=== PATIENT | female | born 1975 | race Hispanic/Latino ===

== ENCOUNTER 2024-02-02 09:46 | Emergency (ER) | payer SELFPAY ==
[~2024-02-02] VITALS: Ht 154.9 cm; Wt 113.4 kg
[2024-02-02 10:38] LABS: BASOPHILS # (AUTO) 0.05 K/uL (0.00-0.20); BASOPHILS % (AUTO) 0.6 % (0.0-5.0); EOSINOPHILS # (AUTO) 0.14 K/uL (0.00-0.70); EOSINOPHILS % (AUTO) 1.8 % (0.0-8.0); HEMATOCRIT 43.7 % (36-48); IMMATURE GRANULOCYTE ABSOLUTE 0.02 K/uL (0-1); LYMPHOCYTES % (AUTO) 39.4 % (21.0-51.0); MEAN CORPUSCULAR HGB CONC 33.4 g/dL (32.0-36.0); MEAN CORPUSCULAR VOLUME 83.9 fL (79-99); MONOCYTES # (AUTO) 0.5 K/uL (0.1-1.0); MONOCYTES % (AUTO) 6.1 % (3.0-13.0); NEUTROPHILS % (AUTO) 51.8 % (40.0-77.0); PLATELET COUNT (AUTO) 282 K/uL (130-400); RED BLOOD CELL COUNT(AUTO) 5.21 MIL/uL (4.00-5.50); RED CELL DISTRIBUTION WIDTH 13.6 % (11.0-15.5); WHITE BLOOD COUNT (AUTO) 7.7 K/uL (4.8-10.8)
[2024-02-02] MEDS: SOLU-MEDROL 125MG VIAL IVP ONE (10:39)
[2024-02-02] MEDS: 0.9%NACL 1000ML 1,000 ML IV ONE (10:39)
[2024-02-02] MEDS: MECLIZINE HCL 25 MG TABLET PO ONE (10:39)
[2024-02-02 10:47] LABS: CREATININE 0.7 mg/dL (0.5-1.0)
[2024-02-02 10:52] LABS: ALBUMIN 3.6 g/dL (3.5-5.0); BILIRUBIN,TOTAL 0.3 mg/dL (0.2-1.0); TOTAL PROTEIN, SERUM 8.2 g/dL (6.0-8.3)
[2024-02-02 11:13] VITALS: BP 115/69; PULSE 66; RESP 18
[2024-02-02] MEDS ORDERED: MECL-302 PO (11:52)
[2024-02-02] MEDS ORDERED: METH4TAB3 PO (11:52)
== END 2024-02-02 12:21 | disposition home or self-care (01) ==
LOC: EDH 09:46
DX: H81.10 Benign paroxysmal vertigo, unspecified ear (principal); Z90.49 Acquired absence of other specified parts of digestive tract; Z98.890 Other specified postprocedural states; Z79.899 Other long term (current) drug therapy; Z88.0 Allergy status to penicillin
CPT/HCPCS: 99284; 96374; 96361; 84484; 80053; 85025; 36415; 93005; J7030; J2919